=== PATIENT | male | born 2000 | race Hispanic/Latino ===

== ENCOUNTER 2021-06-16 21:21 | Emergency (ER) | payer OTHER ==
[~2021-06-16] VITALS: Ht 162.6 cm; Wt 60.8 kg
[2021-06-16 21:50] LABS: APPEARANCE,URINE Clear (CLEAR); BILIRUBIN,URINE Negative (NEGATIVE); COLOR,URINE Dark Yellow (YELLOW); GLUCOSE, URINE (UA) Negative (NEGATIVE); KETONES,URINE 40 mg/dL (NEGATIVE); LEUKOCYTE ESTERASE ,URINE Trace (NEGATIVE); NITRATE,URINE Negative (NEGATIVE); OCCULT BLOOD,URINE Negative (NEGATIVE); PH,URINE 5.5 (5.0-8.0); PROTEIN,URINE Trace mg/dL (NEGATIVE)
[2021-06-16 21:55] LABS: BACTERIA,URINE Few /HPF (None Seen)
[2021-06-16 21:56] LABS: MUCUS,URINE Moderate LPF (None Seen); SQUAMOUS EPITHELIAL CELL,UR Rare /HPF (0-2)
[2021-06-16] MEDS ORDERED: POLY17PO4 PO (22:55)
[2021-06-16] MEDS ORDERED: LACTULOSE 20 GM/30 ML UDCUP PO ONE (23:00)
[2021-06-16 23:05] VITALS: BP 126/73
== END 2021-06-16 23:05 | disposition home or self-care (01) ==
LOC: EDH 21:21
DX: K59.00 Constipation, unspecified (principal); R10.11 Right upper quadrant pain
CPT/HCPCS: 74018; 81001; 87088

== ENCOUNTER 2023-05-02 19:14 | Emergency (ER) | payer BC ==
[~2023-05-02] VITALS: Ht 162.6 cm; Wt 60.8 kg
[~2023-05-02 19:14] MED LIST: POLY17PO4 PO
[2023-05-02 19:24] VITALS: BP 145/88; PULSE 87; RESP 16
[2023-05-02] MEDS ORDERED: IBUPROFEN 600 MG TABLET PO ONE (20:00)
== END 2023-05-02 19:50 | disposition left against medical advice (07) ==
LOC: EDH 19:14
DX: R10.2 Pelvic and perineal pain (principal)
CPT/HCPCS: 99282

== ENCOUNTER 2023-09-20 01:37 | Emergency (ER) | payer BC ==
[~2023-09-20] VITALS: Ht 162.6 cm; Wt 50.8 kg
[2023-09-20 02:03] LABS: BASOPHILS # (AUTO) 0.03 K/uL (0.00-0.20); BASOPHILS % (AUTO) 0.2 % (0.0-5.0); EOSINOPHILS # (AUTO) 0.03 K/uL (0.00-0.70); EOSINOPHILS % (AUTO) 0.2 % (0.0-8.0); HEMATOCRIT 43.8 % (42-54); IMMATURE GRANULOCYTE ABSOLUTE 0.05 K/uL (0-1); LYMPHOCYTES # (AUTO) 2.3 K/uL (1.0-4.8); LYMPHOCYTES % (AUTO) 15.9 % (21.0-51.0); MEAN CORPUSCULAR HEMOGLOBIN 31.1 pg (27.0-33.0); MEAN CORPUSCULAR HGB CONC 36.3 g/dL (32.0-36.0); MEAN CORPUSCULAR VOLUME 85.5 fL (80-100); MONOCYTES # (AUTO) 0.9 K/uL (0.1-1.0); NEUTROPHILS # (AUTO) 11.2 K/uL (1.8-7.7); NEUTROPHILS % (AUTO) 77.4 % (40.0-77.0); PLATELET COUNT (AUTO) 379 K/uL (130-400); RED BLOOD CELL COUNT(AUTO) 5.12 MIL/uL (4.50-6.20); RED CELL DISTRIBUTION WIDTH 12.2 % (11.0-15.5); WHITE BLOOD COUNT (AUTO) 14.4 K/uL (4.8-10.8)
[2023-09-20 02:12] LABS: POTASSIUM 3.6 mmol/L (3.5-5.1)
[2023-09-20 05:42] VITALS: BP 96/52; PULSE 86; RESP 16; O2SAT 100
== END 2023-09-20 05:50 | disposition home or self-care (01) ==
LOC: EDH 01:37
DX: G89.29 Other chronic pain (principal); R10.2 Pelvic and perineal pain; R10.31 Right lower quadrant pain
CPT/HCPCS: 36415; 74176; 80048; 85025

== ENCOUNTER 2024-01-27 19:31 | Emergency (ER) | payer BC ==
[~2024-01-27] VITALS: Ht 162.6 cm; Wt 50.8 kg
[2024-01-27 20:09] LABS: APPEARANCE,URINE CLEAR (CLEAR); BILIRUBIN,URINE NEGATIVE (NEGATIVE); COLOR,URINE LIGHT-YELLOW (YELLOW); GLUCOSE, URINE (UA) NEGATIVE (NEGATIVE); KETONES,URINE NEGATIVE (NEGATIVE); LEUKOCYTE ESTERASE ,URINE NEGATIVE Leu/uL (NEGATIVE); NITRATE,URINE NEGATIVE (NEGATIVE); OCCULT BLOOD,URINE SMALL (NEGATIVE); PROTEIN,URINE 10 mg/dL (NEGATIVE); UROBILINOGEN,URINE 0.2 mg/dL (0.2-1.0)
[2024-01-27 20:11] LABS: ADD UA MICROSCOPIC YES
[2024-01-27 20:13] LABS: MUCUS,URINE RARE LPF (None Seen)
[2024-01-27] MEDS ORDERED: PHEN-776 PO (20:36)
--- NOTE | 2024-01-27 20:37 | ERN ---
ED Note History of Present Illness Stated Complaint: POST CYSTOSCOPY PAIN Chief Complaint: Other Problems Time Seen by MD: 19:39 Dictation: Patient is a 23-year-old male coming in today with post procedural pain after he had a cystoscopy at [facility] by urologist not on staff at [facility] Sunday a week ago. No fever no chills no nausea vomiting. He states the cystoscopy was done secondary to retention and elimination issues. No fever no chills no nausea vomiting Allergies: Coded Allergies: No Known Allergies (Unverified Allergy, Unknown, 06/16/21) Home Meds Active Scripts Polyethylene Glycol 3350 (Miralax) 17 Gm Powd.pack, 17 GM PO DAILY, #527 G Prov:BASIA BRITO MD 06/16/21 Past Medical History Past Medical History: No Pertinent History Surgical History: None Social History: Negative, Lives with family RN Note Reviewed/Agreed w/PFSH: Yes Review of System Dictation CONSTITUTIONAL: Negative except for HPI HEAD/FACE: Negative except for HPI EENT: Negative except for HPI RESPIRATORY: Negative except for HPI GASTROINTESTINAL/ABDOMINAL: Negative except for HPI GENITOURINARY: Negative except for HPIHematuria/suprapubic pa MUSCULOSKELETAL: Negative except for HPI INTEGUMENTARY: Negative except for HPI NEUROLOGICAL/PSYCH: Negative except for HPI HEMATOLOGIC/LYMPHATIC: Negative except for HPI All Systems Negative, Except as noted above. 13 point review of systems assessed and all negative except for above. Initial Vital Sign VS Vital Signs Date Time Temp Pulse Resp B/P (MAP) Pulse Ox O2 Delivery O2 Flow Rate FiO2 01/27/24 19:32 98.4 97 20 136/84 100 Room Air Physical Exam Dictation Vital Signs reviewed General Appearance: Alert, oriented x 3, Moderate acute distress, well developed, nourished. Head and Face: non-traumatic. Eyes: PERRL, pink conjunctivas, eyelid no trauma, anterior chamber with arcus senilis. Ears: Pinnas intact and no signs of trauma or erythema ear canals clear and no discharge TM no erythema Nose: No discharge, no bleeding. Oropharynx: Mouth normal, tongue pink, pharynx clear,no erythema, tonsils no exudates, no abscesses noted, mucous membrane moist Neck: Supple, non-tender, no thyromegaly, no masses, no JVD, no bruits Breast:Deferred Chest:No tenderness, no crepitus, no paradoxical movement, no retractions Lungs:Clear, well-ventilated, symmetric, no rales, no wheezing, no rhonchi, no stridor, good breath sounds bilaterally Heart: Regular rate, regular rhythm, no murmur, no gallops Vascular: no peripheral edema, Abdomen: Soft, positive bowel sounds, nondistended, no guarding, nontender, no rebound, no masses no hepatomegaly, no splenomegaly, no Wilkes's sign, no hernias. Rectal: Deferred Genital: Deferred Neurological: Normal speech, motor function intact, sensory function intact Musculoskeletal: Neck nontender, full range of motion, back nontender, full range of motion, Extremities: nontender, full range of motion Skin: Color pink, dry, no turgor, no rash, no lacerations, no abrasions, no contusions. Lymphatic: Deferred Results (Laboratory/Radiology) Laboratory/Radiology Laboratory Tests Test 01/27/24 19:56 Urine Color LIGHT-YELLOW (YELLOW) Urine Appearance CLEAR (CLEAR) Urine pH 6.0 (5.0-8.0) Urine Specific [place] 1.014 (1.001-1.031) Urine Protein 10 mg/dL (NEGATIVE) H Urine Glucose (UA) NEGATIVE mg/dL (NEGATIVE) Urine Ketones NEGATIVE mg/dL (NEGATIVE) Urine Occult Blood SMALL (NEGATIVE) H Urine Nitrate NEGATIVE (NEGATIVE) Urine Bilirubin NEGATIVE mg/dL (NEGATIVE) Urine Urobilinogen 0.2 mg/dL (0.2-1.0) Urine Leukocyte Esterase NEGATIVE Frank/uL Urine RBC 6-10 /HPF (0-1) H Urine WBC 2-5 /HPF (0-1) H Urine Bacteria None /HPF (None Seen) Labs Reviewed?: Yes ED Course ED Course Orders Procedure Category Date Status Time Urinalysis Profile LAB 01/27/24 Complete 19:38 Acetaminophen With PHA 01/27/24 Complete Codeine (Tylenol-Code 20:30 Phenazopyridine Hcl PHA 01/27/24 Complete 200 Mg Tab (Pyridium 20:30 Current Medications Medications (Trade) Dose Ordered Sig/Hannah Route PRN Reason Start Time Stop Time Status Last Admin Dose Admin Acetaminophen/ Codeine Phosphate (TYLenol-coDEINE TAB) 2 tab ONCE ONCE PO 01/27/24 20:30 01/27/24 20:31 DC Phenazopyridine HCl (PYRIdium HCL 200 MG TAB) 200 mg ONCE ONCE PO 01/27/24 20:30 01/27/24 20:31 DC Vital Signs Date Time Temp Pulse Resp B/P (MAP) Pulse Ox O2 Delivery O2 Flow Rate FiO2 01/27/24 19:32 98.4 97 20 136/84 100 Room Air 2034, patient discharged home after pain was managed and told to follow up with his urologist at [facility] in 1-2 days Medical Decision Making MDM Medical discharge making based on urinalysis only urine is negative patient discharged home with Pyridium told to see his doctor in of Urology at [facility] DX & DISP Disposition: Discharge Departure Impression: Primary Impression: Postoperative pain Additional Impression: Hematuria Condition: Stable Scripts Phenazopyridine HCl (Pyridium) 200 Mg Tablet 200 MG PO TID for painful urination for 5 Days, #15 TAB 0 Refills Prov: JOHN CRUZ NP 01/27/24 Additional Instructions: Follow-up with primary care provider in 1 to 2 days. Take medications as directed here in the emergency room. Okay to continue home medications unless otherwise discussed during your visit in the emergency room today. Return to your nearest emergency room if symptoms worsen or if there is no improvement. Call 911 if you need immediate assistance. Take Tylenol or Motrin [id number] as needed and if no contraindications are present. Increase oral hydration. A wound culture or urine culture was ordered here in the emergency room department please follow-up with primary care provider and advise them to get repeat ports from our facility. If you had any Fran wrap/splints that were applied here, please do not remove them until you see your primary care or specialty. Continue all medications and treatments from your doctor. Take Pyridium as directed for bladder spasm. See your urologist at [facility] in 1-2 days or as soon as possibl Referrals: SELF,REFERRAL (PCP) Time of Disposition: 20:36 I have reviewed the case, and I agree with, Diagnosis and Plan JOHN CRUZ NP Jan 27, 2024 20:37
[2024-01-27] MEDS: PHENAZOpyridine HCL 200 MG TAB 200 MG TABLET PO ONE (20:41)
[2024-01-27] MEDS: acetaMINOPHEN WITH coDEINE 1 TAB TAB PO ONE (20:41)
[2024-01-27 20:48] VITALS: BP 132/82; PULSE 88; RESP 16; TEMP 98.1; O2SAT 100
== END 2024-01-27 20:49 | disposition home or self-care (01) ==
LOC: EDH 19:31
DX: G89.18 Other acute postprocedural pain (principal); R31.9 Hematuria, unspecified; Z79.899 Other long term (current) drug therapy
CPT/HCPCS: 81001; 99283